=== PATIENT | male | born 1970 | race Caucasian/White ===

== ENCOUNTER 2021-03-20 05:30 | Outpatient (CLI) | payer BC ==
[~2021-03-20] VITALS: Ht 180.3 cm; Wt 95.3 kg
[~2021-03-20 05:30] MED LIST: CLN.1T PO; DIAZ-345 PO; ENAL10TA PO; HYDR1TAB PO; MECL-124 PO; ONDAN4ODT PO; SCOP1PAT TD
== END 2021-03-25 12:48 | disposition home or self-care (01) ==
LOC: PREOP 05:30
PROVIDERS: ATTEND Surgery
DX: Z01.818 Encounter for other preprocedural examination (principal)

== ENCOUNTER 2021-03-27 09:05 | Day surgery (SDC) | payer BC ==
--- NOTE | 2021-03-26 14:34 | HISTORY AND PHYSICAL ---
DATE OF SERVICE: PROCEDURE DATE: 03/27/2021. ATTENDING PRIMARY CARE PHYSICIAN: Dr. Wilmar Galvez. HISTORY OF PRESENT ILLNESS: The patient is a 51-year-old male, who was referred over to us in need of a screening colonoscopy. He reports that at this point in his life he has never had one done before. He denies any blood in his stool as well as no family history of any colon cancer. He also denies any diarrhea, constipation or any abdominal pain. PAST MEDICAL HISTORY: Hypertension, hypercholesterolemia. PAST SURGICAL HISTORY: Repair of left torn Achilles tendon, 01/2004. ALLERGIES: No known drug allergies. MEDICATIONS: Enalapril, simvastatin. SOCIAL HISTORY: Negative for smoke, social for alcohol. FAMILY HISTORY: None. VITAL SIGNS: Blood pressure is 148/88. Current weight is 207.0 at 5 feet 11 inches. REVIEW OF SYSTEMS: This is a well-nourished male in no acute distress. He is not experiencing any shortness of breath or difficulty breathing. No chest pain, palpitations or diaphoresis. No nausea, vomiting or abdominal pain. No diarrhea or constipation. No red blood per rectum. No dark tarry stools. No fever or chills. No recent inadvertent weight loss. All other review of systems negative. PHYSICAL EXAMINATION: CHEST: Clear. Good breath sounds bilaterally. HEART: Regular, no murmurs. EXTREMITIES: No lower extremity edema. Negative Homans sign. HEENT: No scleral icterus. NECK: No cervical lymphadenopathy. ABDOMEN: Soft, nontender, nondistended. SKIN: Warm, dry and pink. NEUROLOGIC: He is awake, alert and oriented x3. ASSESSMENT AND PLAN: A 51-year-old male, who is in need of a screening colonoscopy. At this time, we will proceed with scheduling him for a screening colonoscopy. Job ID: [id number] DocumentID: [id number] Dictated Date: 03/26/2021 14:04:02 Sanitation Worker Hosing Machinery Date: 03/26/2021 14:33:01 Dictated By: MO PAULA APRN
[2021-03-27] VITALS (14 sets, daily range): BP systolic 114–156; BP diastolic 60–94
[~2021-03-27] VITALS: Ht 180.3 cm; Wt 95.3 kg
[2021-03-27] MEDS ORDERED: NS IV 500 ML 500 ML ONE (09:08)
[2021-03-27] MEDS ORDERED: fentaNYL INJ 100 MCG/2 ML AMP IVP ONE (09:15)
[2021-03-27] MEDS ORDERED: LIDOCAINE JELLY 2% 6 ML SYRINGE MM PRN (09:15)
[2021-03-27] MEDS ORDERED: NS IV 500 ML 500 ML IV PRN (09:15)
[2021-03-27] MEDS ORDERED: MIDAZOLAM 5 MG/5 ML (VERSED) VIAL IV ONE (09:15)
[2021-03-27] MEDS ORDERED: ENAL20TA16 PO (09:38)
[2021-03-27] MEDS ORDERED: SIMV40TA25 PO (09:38)
[2021-03-27] MEDS ORDERED: HYDR12.56 PO (09:38)
--- NOTE | 2021-03-27 10:27 | Conscious Sedation/ASA ---
Conscious Sedation Pre-Proced Time 09:30 ASA Score 2 For ASA 3 and 4: Consider anesthesia and medical clearance. Also, for patients with a history of failed moderate sedation consider anesthesia. Airway Lungs Heart ASA score ASA 1: a normal healthy patient ASA 2: a patient with a mild systemic disease (mid diabetes, controlled hypertension, obesity ASA 3: a patient with a severe systemic disease that limits activity (angina, COPD, prior Myocardial infarction) ASA 4: a patient with an incapacitating disease that is a constant threat to life (CHF, renal failure) ASA 5: a moribund patient not expected to survive 24 hrs. (ruptured aneurysm) ASA 6: a declared brain- patient whose organs are being harvested. For emergent operations, add the letter E after the classification Mallampati Classification Grade 2 Sedation Plan Analgesia, Amnesia, Plan communicated to team members, Discussed options with patient/fam, Discussed risks with patient/fam The patient is an appropriate candidate to undergo the planned procedure, sedation, and anesthesia. The patient immediately re-assessed prior to indication. BENITA MCGRATH MD Mar 27, 2021 10:27
--- NOTE | 2021-03-27 10:28 | Discharge Inst-Surgical ---
D/C Lap Instructions-ALCIDES Follow Up Activity as tolerated High Fiber Diet 25g or more per day Avoid Alcohol, Caffeine, Spicy [place] and Acid foods. Drink 64 fluid oz or more of fluids per day. Symptoms to Report: Fever over 101 degree F, Nausea/Vomiting If any problems/questions: Contact your physician or go to Emergency Room BENITA MCGRATH MD Mar 27, 2021 10:28
--- NOTE | 2021-03-27 10:28 | Progress Note-Pre Operative ---
Pre-Operative Progress Note H&P Reviewed The H&P was reviewed, patient examined and no changes noted. Date Seen by Provider: Mar 27, 2021 Time Seen by Provider: :30 Date H&P Reviewed: Mar 27, 2021 Time H&P Reviewed: :30 Pre-Operative Diagnosis: screening BENITA Veras MD Mar 27, 2021 10:28
[2021-03-27] MEDS ORDERED: ONDANSETRON 4 MG (ZOFRAN) ORAL DISSOLVE TAB PO PRN (10:30)
[2021-03-27] MEDS ORDERED: ONDANSETRON 4 MG/2 ML (SDV) Z0FRAN IVP PRN (10:30)
--- NOTE | 2021-03-27 11:13 | Progress Note-Post Operative ---
Post-Operative Progess Note Surgeon (s)/Mri Assistant (s) Surgeon BENITA MCGRATH MD Mri Assistant: none Pre-Operative Diagnosis screening colo Post-Operative Diagnosis mild chronic stage 2 ext and int hemorrhoids, mild sigmoid diverticulosis. pedunculated polyp sigmoid(3mm), splenic flexure(4mm), tranverse(2mm). Procedure & Operative Findings Date of Procedure 03/27/21 Procedure Performed/Findings colonoscopy with snare polypectomyx2 and bx forcep polypectomyx1 Anesthesia Type cs Estimated Blood Loss Estimated blood loss (mL): minimal Specimens/Packing Specimens Removed polyp sigmoid, splenic flex, transverse BEINTA MCGRATH MD Mar 27, 2021 11:13
--- NOTE | 2021-03-27 16:31 | OPERATIVE REPORT ---
DATE OF SERVICE: 03/27/2021 ATTENDING PRIMARY CARE PHYSICIAN: Paulie Gaston MD. PREOPERATIVE DIAGNOSIS: Screening colonoscopy. POSTOPERATIVE DIAGNOSES: Mild chronic stage II external and internal hemorrhoids, pedunculated polyp of the sigmoid colon, splenic flexure, transverse colon, mild sigmoid diverticulosis. PROCEDURE: Colonoscopy with snare polypectomy x2 and destruction by biopsy forceps and electrocautery. SURGEON: Benita Mcgrath MD. ANESTHESIA: Conscious sedation. ESTIMATED BLOOD LOSS: Minimal. FINDINGS: Mild chronic stage II external and internal hemorrhoids, pedunculated polyp of the sigmoid colon, splenic flexure, transverse colon, mild sigmoid diverticulosis. DISPOSITION: The patient tolerated the procedure well. INDICATIONS: The patient is a 51-year-old male in need of a screening colonoscopy. He has not had a colonoscopy up to this point in his life. He does not report any major issues with diarrhea nor constipation as well as no red blood per rectum nor any dark tarry stools. He also does not report any family history of colon cancer. DESCRIPTION OF PROCEDURE: The patient was brought to the endoscopy suite, laid in the left lateral decubitus position. After adequate IV pain and sedative medications and conscious sedation anesthesia, digital rectal examination was performed. Mild chronic stage II external and internal hemorrhoids were identified, which were not actively edematous nor inflamed and no bleeding. Normal sphincter tone was felt and there were no palpable masses. Prostate gland was palpable and appeared normal. The endoscope was then intubated into the anus and rectum gently insufflated. The endoscope was then advanced to the valves of Rodriguez of the rectum with no polyps or any neoplasms identified. Through the sigmoid colon, a few isolated early diverticula identified. A pedunculated polyp of the sigmoid colon was identified approximately 3 mm in size. This was excised with snare and electrocautery at the stalk and then retrieved with visualization of good hemostasis. The endoscope was then advanced through the descending colon to the splenic flexure. Another pedunculated polyp slightly larger in size was identified. This was also excised at the stalk using loop snare and cautery with visualization of good hemostasis. This was retrieved. The endoscope was then advanced through the transverse colon where a small pedunculated polyp approximately 2 mm in size was identified. This was biopsied and destroyed with forceps and electrocautery with visualization of good hemostasis. The endoscope was then advanced through the remainder of the transverse and ascending colon to the cecum, which were normal. No other lesions identified. The endoscope was then slowly withdrawn while taking a second look and suctioning of residual air with no additional findings. The patient tolerated the procedure well. We will await the biopsy results; however, due to the multiple polyps identified, we will recommend a followup colonoscopy within 5 years. If any of the polyps to show a villous component, then he will need a followup colonoscopy within 3 years. Job ID: [id number] DocumentID: [id number] Dictated Date: 03/27/2021 11:10:27 Construction Foreman Date: 03/27/2021 16:29:31 Dictated By: BENITA MCGRATH MD
== END 2021-03-27 11:52 | disposition home or self-care (01) ==
LOC: ENDO 09:05
PROVIDERS: ATTEND Surgery
DX: Z12.11 Encounter for screening for malignant neoplasm of colon (principal); D12.3 Benign neoplasm of transverse colon; D12.5 Benign neoplasm of sigmoid colon; K63.5 Polyp of colon; K64.1 Second degree hemorrhoids; K64.4 Residual hemorrhoidal skin tags; K57.30 Diverticulosis of large intestine without perforation or abscess without bleeding; I10 Essential (primary) hypertension; E78.00 Pure hypercholesterolemia, unspecified; Z79.899 Other long term (current) drug therapy
CPT/HCPCS: 88305

== ENCOUNTER → 2022-03-18 | Outpatient (CLI) | payer BC ==
[~2022-03-18] VITALS: Ht 180.3 cm; Wt 92.5 kg
[~2022-03-18] MED LIST changes: +ENAL20TA16 PO; +HYDR12.56 PO; +SIMV40TA25 PO
== END | disposition home or self-care (01) ==
LOC: PREOP 09:49
PROVIDERS: ATTEND Surgery
DX: Z01.818 Encounter for other preprocedural examination (principal)

== ENCOUNTER 2022-03-19 11:48 | Day surgery (SDC) | payer BC ==
[~2022-03-19] VITALS: Ht 180.3 cm; Wt 92.5 kg
[2022-03-19] MEDS ORDERED: LACTATED RINGERS 1,000 ML IV ONE (11:57)
[2022-03-19] MEDS ORDERED: LIDOCAINE JELLY 2% 6 ML SYRINGE MM PRN (12:00)
[2022-03-19] MEDS ORDERED: LACTATED RINGERS 1,000 ML IV STA (12:00)
[2022-03-19 12:05] VITALS: BP 129/83
--- NOTE | 2022-03-19 12:59 | Progress Note-Pre Operative ---
Pre-Operative Progress Note Date of Available H&P: Mar 19, 2022 Date H&P Reviewed: Mar 19, 2022 Time H&P Reviewed: 12:00 History & Physical: No changes noted Pre-Operative Diagnosis: hx colon polyp with dyspasia BENITA MCGRATH MD Mar 19, 2022 12:59
[2022-03-19] MEDS ORDERED: ONDANSETRON 4 MG (ZOFRAN) ORAL DISSOLVE TAB PO PRN (13:00)
[2022-03-19] MEDS ORDERED: ONDANSETRON 4 MG/2 ML (SDV) Z0FRAN IVP PRN (13:00)
--- NOTE | 2022-03-19 13:00 | Discharge Inst-Surgical ---
D/C Lap Instructions-ACLIDES Follow Up Activity as tolerated High Fiber Diet 25g or more per day Avoid Alcohol, Caffeine, Spicy [place] and Acid foods. Drink 64 fluid oz or more of fluids per day. Symptoms to Report: Fever over 101 degree F, Nausea/Vomiting If any problems/questions: Contact your physician or go to Emergency Room BENITA MCGRATH MD Mar 19, 2022 13:00
[2022-03-19] MEDS ORDERED: PROPOFOL INJECTION 50 ML IV ONE (13:42)
--- NOTE | 2022-03-19 14:32 | Anesthesia-General Post-Op ---
MAC Patient Condition Mental Status/LOC: Same as Preop Cardiovascular: Satisfactory Nausea/Vomiting: Absent Respiratory: Satisfactory Pain: Controlled Complications: Absent Post Op Complications Complications None Follow Up Care/Instructions Patient Instructions None needed. Anesthesiology Discharge Order Discharge Order Patient is doing well, no complaints, stable vital signs, no apparent adverse anesthesia problems. No complications reported per nursing. HONEY LOZADA CRNA Mar 19, 2022 14:31
[2022-03-19 14:35] VITALS: BP 107/59
[2022-03-19 14:40] VITALS: BP 114/72
--- NOTE | 2022-03-19 14:44 | Progress Note-Post Operative ---
Post-Operative Progess Note Surgeon (s)/Analytic Manager (s) Surgeon BENITA MCGRATH MD Analytic Manager: none Pre-Operative Diagnosis hx colon polyp with dyspasia Post-Operative Diagnosis mild chronic stage 2 ext and int hemrorrhoids, pedunculated polyp rectum(6mm). Procedure & Operative Findings Date of Procedure 03/19/22 Procedure Performed/Findings colonoscopy with snare polypectomy. Anesthesia Type mac Estimated Blood Loss Estimated blood loss (mL): minimal Specimens/Packing Specimens Removed rectal polyp BENITA MCGRATH MD Mar 19, 2022 14:44
[2022-03-19 14:45] VITALS: BP 114/72
[2022-03-19 15:10] VITALS: BP 114/72
--- NOTE | 2022-03-20 01:16 | OPERATIVE REPORT ---
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 POSTOPERATIVE DIAGNOSES: Mild chronic stage II external and internal hemorrhoids, pedunculated polyp of the rectum approximately 6 mm in size. No recurrent hepatic flexure polyp. PROCEDURE: Colonoscopy with snare polypectomy. SURGEON: Benita Mcgrath MD. ANESTHESIA: Monitored anesthesia care. ESTIMATED BLOOD LOSS: Minimal. FINDINGS: Mild chronic stage II external and internal hemorrhoids, pedunculated polyp of the rectum approximately 6 mm in size. No recurrent hepatic flexure polyp. DISPOSITION: The patient tolerated the procedure well. INDICATIONS: The patient is a 52-year-old male known to us. We had seen him in 11/2020 for a colonoscopy and underwent a snare polypectomy of 2 pedunculated polyps. One was identified of the sigmoid colon and consistent with a tubular adenoma and there was one approximately at the splenic flexure, which came back as a tubulovillous adenoma with focus of high-grade dysplasia. He is otherwise asymptomatic, does not report any red blood per rectum nor any dark tarry stools as well as no inadvertent weight loss. He is here for followup colonoscopy. DESCRIPTION OF PROCEDURE: The patient was brought to the endoscopy suite, laid in the left lateral decubitus position. After adequate IV pain and sedative medications and monitored anesthesia care, a digital rectal examination was performed. Mild chronic stage II external and internal hemorrhoids were identified, which were not actively edematous nor inflamed and no bleeding. Normal sphincter tone was felt and there were no palpable masses. Prostate gland was palpable and appeared normal. The endoscope was then intubated to the anus and rectum gently insufflated. The endoscope was then advanced through the valves of Rodriguez of the rectum where a pedunculated polyp identified. This was snared and cauterized at its stalk with visualization of good hemostasis. The polyp was sent to pathology. The endoscope was then advanced through the remainder of the sigmoid and descending colon. At the previous site of the tubulovillous adenoma with dysplasia around the hepatic flexure, there did not appear to be any recurrent polyps. The endoscope was then advanced through the remainder of the transverse and ascending colon to the cecum, which were normal as well. The endoscope was then slowly withdrawn while taking a second look and suctioning of residual air with no additional findings. The patient tolerated the procedure well. We will await the biopsy results. Due to the finding of another polyp of the size within 1 year is likely of polyp formation is higher than the general population and we will recommend a follow-up colonoscopy within 3 years. If minimal polyps, no polyps or only tubular adenomas are identified on subsequent colonoscopies, we may then increase the duration between followup colonoscopies. Job ID: [id number] DocumentID: [id number] Dictated Date: 03/19/2022 14:39:16 Electronics Assembler Date: 03/20/2022 01:15:34 Dictated By: BENITA MCGRATH MD
== END 2022-03-19 15:15 | disposition home or self-care (01) ==
LOC: ENDO 11:48
PROVIDERS: ATTEND Surgery
DX: D12.8 Benign neoplasm of rectum (principal); K64.1 Second degree hemorrhoids; K64.4 Residual hemorrhoidal skin tags
CPT/HCPCS: 88305